=== PATIENT | female | born 2000 | race American Indian/Alaskan Native ===

== ENCOUNTER 2021-02-01 15:36 | Emergency (ER) | payer MEDICAID ==
[2021-02-01] MEDS ORDERED: Ondansetron 4 MG/2 ML SDV IVPUSH ONE (16:05)
[2021-02-01] MEDS ORDERED: Ketorolac 30 MG/ML SDV IVPUSH ONE (16:05)
[2021-02-01] MEDS ORDERED: Morphine 4 MG/ML VIAL IVPUSH ONE (16:05)
[2021-02-01] MEDS ORDERED: Sodium Chloride 0.9% 1,000 ML IV SCH (16:15)
[2021-02-01] MEDS: Sodium Chloride 0.9% 10 ML Syringe FLUSH PRN ×2 (16:30→16:38)
--- NOTE | 2021-02-01 17:05 | EDM.PDOC ---
ED HPI GENERAL MEDICAL PROBLEM - General Chief Complaint: Abdominal Pain Stated Complaint: UPPER R ABD PAIN Time Seen by Provider: 02/01/21 15:45 Source of Information: Reports: Patient History Limitations: Reports: No Limitations - History of Present Illness INITIAL COMMENTS - FREE TEXT/NARRATIVE: Patient presented to the ED because of RUQ pain which started 4 weeks ago. It's stabbing,intermittent,8-9/10 with associated N/V x1. There is no fever, chills,cough/cold. No UTI s/s but she has been constipated for 6 days now and has vaginal pain on sexual intercourse. There is no vaginal discharge, she was treated for Chlamydia 3 weeks ago. Right Upper Abdomen Pain Score (Numeric/FACES): 8 - Related Data Allergies Allergy/AdvReac Type Severity Reaction Status Date / Time No Known Allergies Allergy Verified 02/01/21 16:04 Home Meds: Home Meds Clindamycin HCl 600 mg PO QID #80 capsule 02/01/21 [Rx] Doxycycline [Vibra-Tabs] 100 mg PO BID #20 tab 02/01/21 [Rx] Ondansetron [Zofran ODT] 4 mg PO Q4H PRN #5 tab.dis 02/01/21 [Rx] Sulfamethoxazole/Trimethoprim [Bactrim Ds Tablet] 1 each PO BID #10 tablet 02/01/21 [Rx] ED ROS GENERAL - Review of Systems Review Of Systems: See Below Constitutional: Reports: No Symptoms HEENT: Reports: No Symptoms Respiratory: Reports: No Symptoms Cardiovascular: Reports: No Symptoms Endocrine: Reports: No Symptoms GI/Abdominal: Reports: Abdominal Pain, Constipation, Nausea, Vomiting : Reports: No Symptoms Musculoskeletal: Reports: No Symptoms Skin: Reports: No Symptoms Neurological: Reports: No Symptoms Psychiatric: Reports: No Symptoms ED EXAM, GI/ABD - Physical Exam Exam: See Below Exam Limited By: No Limitations General Appearance: Alert, No Apparent Distress Ears: Normal External Exam, Normal Canal, Hearing Grossly Normal, Normal TMs Nose: Normal Inspection, Normal Mucosa, No Blood Throat/Mouth: Normal Inspection, Normal Lips, Normal Teeth, Normal Gums, Normal Oropharynx, Normal Voice Head: Atraumatic, Normocephalic Neck: Normal Inspection, Supple, Non-Tender, Full Range of Motion Respiratory/Chest: No Respiratory Distress, Lungs Clear, Normal Breath Sounds, No Accessory Muscle Use Cardiovascular: Normal Peripheral Pulses, Regular Rate, Rhythm, No Edema, No Gallop, No JVD, No Murmur GI/Abdominal Exam: Normal Bowel Sounds, Soft, No Organomegaly, Other (epigastric and ruq tenderness) Back Exam: Normal Inspection, Full Range of Motion Extremities: Normal Inspection, Normal Range of Motion, Non-Tender Course - Vital Signs Text/Narrative:: Lab/CT abd-pelvis result was reviewed and discussed with patient Simethicone 80 mg PO x1 Zofran 4 mg IV x1 Toradol 30 mg IV x1 Morphine 4 mg IV x1 NS 1 L bolus Last Recorded V/S: Last Vital Signs Temp 36.4 C 02/01/21 15:36 Pulse 86 02/01/21 15:36 Resp 20 02/01/21 15:36 BP 152/76 H 02/01/21 15:36 Pulse Ox 96 02/01/21 15:36 - Orders/Labs/Meds Orders: Active Orders 24 hr Category Date Time Status Abdomen Pelvis w Cont [CT] Stat Exams 02/01/21 17:05 Taken CULTURE URINE [RM] Stat Lab 02/01/21 16:23 Ordered Sodium Chloride 0.9% [Normal Saline] 1,000 ml Med 02/01/21 16:15 Active IV ASDIRECTED Sodium Chloride 0.9% [Saline Flush] Med 02/01/21 15:52 Active 10 ml FLUSH ASDIRECTED PRN Saline Lock Insert [OM.PC] Routine Oth 02/01/21 15:52 Ordered Medication Orders Sodium Chloride (Normal Saline) 1,000 mls @ 999 mls/hr IV ASDIRECTED FRANCES Last Admin: 02/01/21 16:35 Dose: 999 mls/hr Documented by: RADHA Sodium Chloride (Sodium Chloride 0.9% 10 Ml Syringe) 10 ml FLUSH ASDIRECTED PRN PRN Reason: Keep Vein Open Last Admin: 02/01/21 16:38 Dose: 10 ml Documented by: Admin: 02/01/21 16:30 Dose: 10 ml Documented by: RADHA Labs: Laboratory Tests 02/01/21 02/01/21 02/01/21 Range/Units 16:20 16:20 16:40 WBC 7.6 (3.0-10.3) x10-3/uL RBC 4.69 (3.60-5.20) x10(6)uL Hgb 11.8 (11.4-15.5) g/dL Hct 36.6 (34.2-48.2) % MCV 77.9 (76.7-100.5) fL MCH 25.1 (23.9-33.9) pg MCHC 32.2 (31.9-34.8) g/dL RDW 15.8 (12.3-16.5) % Plt Count 415 (151-488) x10(3)uL MPV 6.3 L (7.1-12.4) fL Neut % (Auto) 70.4 (30.8-76.2) % Lymph % (Auto) 20.1 (18.4-52.1) % [place] % (Auto) 8.3 (4.4-15.7) % Eos % (Auto) 0.7 (0.6-8.1) % Baso % (Auto) 0.5 (0.2-1.5) % Neut # (Auto) 5.3 (1.5-6.3) x10-3/uL Lymph # (Auto) 1.5 (1.0-4.4) x10-3/uL Baldwin # (Auto) 0.6 (0.3-1.0) x10-3/uL Eos # (Auto) 0.1 (0.0-0.8) x10-3/uL Baso # (Auto) 0.0 (0.0-0.1) x10-3/uL Sodium (135-145) mmol/L Potassium (3.5-5.3) mmol/L Chloride (100-110) mmol/L Carbon Dioxide (21-32) mmol/L BUN (7-18) mg/dL Creatinine (0.55-1.02) mg/dL Est Cr Clr Drug Dosing mL/min Estimated GFR (MDRD) (>60) BUN/Creatinine Ratio (9-20) Glucose (80-116) mg/dL Calcium (8.2-10.1) mg/dL Total Bilirubin (0.1-1.2) mg/dL AST (5-25) IU/L ALT (12-36) U/L Alkaline Phosphatase (56-112) IU/L Total Protein (6.0-8.0) g/dL Albumin (3.2-4.5) g/dL Globulin g/dL Albumin/Globulin Ratio Amylase (25-115) U/L Lipase (73-393) U/L Urine Color Yellow (YELLOW) Urine Appearance Clear (CLEAR) Urine pH 5.0 (5.0-6.5) Ur Specific [place] 1.020 (1.010-1.025) Urine Protein Negative (NEGATIVE) mg/dL Urine Glucose (UA) Normal (NORMAL) mg/dL Urine Ketones Negative (NEGATIVE) mg/dL Urine Occult Blood Negative (NEGATIVE) Urine Nitrite Negative (NEGATIVE) Urine Bilirubin Negative (NEGATIVE) Urine Urobilinogen 1 H (NEGATIVE) mg/dL Ur Leukocyte Esterase Small H (NEGATIVE) Urine RBC 0-5 (0-5) Urine WBC 0-5 (0-5) Ur Squamous Epith Cells Occasional (NS,R,O) Urine Bacteria Rare H (NS) Urine Mucus Few H (NS) Urine HCG, Qual Negative (NEGATIVE) 02/01/21 02/01/21 Range/Units 16:40 16:40 WBC (3.0-10.3) x10-3/uL RBC (3.60-5.20) x10(6)uL Hgb (11.4-15.5) g/dL Hct (34.2-48.2) % MCV (76.7-100.5) fL MCH (23.9-33.9) pg MCHC (31.9-34.8) g/dL RDW (12.3-16.5) % Plt Count (151-488) x10(3)uL MPV (7.1-12.4) fL Neut % (Auto) (30.8-76.2) % Lymph % (Auto) (18.4-52.1) % Baldwin % (Auto) (4.4-15.7) % Eos % (Auto) (0.6-8.1) % Baso % (Auto) (0.2-1.5) % Neut # (Auto) (1.5-6.3) x10-3/uL Lymph # (Auto) (1.0-4.4) x10-3/uL [place] # (Auto) (0.3-1.0) x10-3/uL Eos # (Auto) (0.0-0.8) x10-3/uL Baso # (Auto) (0.0-0.1) x10-3/uL Sodium 139 (135-145) mmol/L Potassium 4.1 (3.5-5.3) mmol/L Chloride 104 (100-110) mmol/L Carbon Dioxide 23 (21-32) mmol/L BUN 9 (7-18) mg/dL Creatinine 0.8 (0.55-1.02) mg/dL Est Cr Clr Drug Dosing 126.42 mL/min Estimated GFR (MDRD) > 60 (>60) BUN/Creatinine Ratio 11.3 (9-20) Glucose 86 (80-116) mg/dL Calcium 8.6 (8.2-10.1) mg/dL Total Bilirubin 0.3 (0.1-1.2) mg/dL AST 23 (5-25) IU/L ALT 32 (12-36) U/L Alkaline Phosphatase 64 (56-112) IU/L Total Protein 8.3 H (6.0-8.0) g/dL Albumin 3.6 (3.2-4.5) g/dL Globulin 4.7 g/dL Albumin/Globulin Ratio 0.8 Amylase 26 (25-115) U/L Lipase 100 (73-393) U/L Urine Color (YELLOW) Urine Appearance (CLEAR) Urine pH (5.0-6.5) Ur Specific [place] (1.010-1.025) Urine Protein (NEGATIVE) mg/dL Urine Glucose (UA) (NORMAL) mg/dL Urine Ketones (NEGATIVE) mg/dL Urine Occult Blood (NEGATIVE) Urine Nitrite (NEGATIVE) Urine Bilirubin (NEGATIVE) Urine Urobilinogen (NEGATIVE) mg/dL Ur Leukocyte Esterase (NEGATIVE) Urine RBC (0-5) Urine WBC (0-5) Ur Squamous Epith Cells (NS,R,O) Urine Bacteria (NS) Urine Mucus (NS) Urine HCG, Qual (NEGATIVE) Meds: Medications Generic Name Dose Route Start Last Admin Trade Name Freq PRN Reason Stop Dose Admin Sodium Chloride 1,000 mls @ 999 mls/hr 02/01/21 16:15 02/01/21 16:35 Normal Saline IV 999 mls/hr ASDIRECTED FRANCES Administration Sodium Chloride 10 ml 02/01/21 15:52 02/01/21 16:38 Sodium Chloride 0.9% 10 Ml Syringe FLUSH 10 ml ASDIRECTED PRN Administration Keep Vein Open Discontinued Medications Generic Name Dose Route Start Last Admin Trade Name Baldevq PRN Reason Stop Dose Admin Al Hydroxide/Mg Hydroxide 15 0 ml 02/01/21 17:39 ml/ Lidocaine HCl 15 ml PO 02/01/21 17:40 ONETIME ONE Iopamidol 117 ml 02/01/21 18:00 02/01/21 18:12 Iopamidol 755 Mg/Ml 150 Ml Bottle IV 02/01/21 18:01 117 ml ONETIME ONE Administration Ketorolac Tromethamine 30 mg 02/01/21 16:05 02/01/21 16:46 Ketorolac 30 Mg/Ml Sdv IVPUSH 02/01/21 16:06 30 mg ONETIME ONE Administration Morphine Sulfate 4 mg 02/01/21 16:05 02/01/21 16:48 Morphine 4 Mg/Ml Vial IVPUSH 02/01/21 16:06 4 mg ONETIME ONE Administration Ondansetron HCl 4 mg 02/01/21 16:05 02/01/21 16:46 Ondansetron 4 Mg/2 Ml Sdv IVPUSH 02/01/21 16:06 4 mg ONETIME ONE Administration Simethicone 80 mg 02/01/21 17:43 02/01/21 17:48 Simethicone 80 Mg Tab.Chew PO 02/01/21 17:44 80 mg NOW STA Administration Departure - Departure Time of Disposition: 18:30 Disposition: Home, Self-Care 01 Condition: Good Clinical Impression: UTI (urinary tract infection), Endometritis - Discharge Information Prescriptions: Sulfamethoxazole/Trimethoprim [Bactrim Ds Tablet] 1 each PO BID #10 tablet Clindamycin HCl 600 mg PO QID #80 capsule Doxycycline [Vibra-Tabs] 100 mg PO BID #20 tab Ondansetron [Zofran ODT] 4 mg PO Q4H PRN #5 tab.dis PRN Reason: Constipation Instructions: Urinary Tract Infection, Adult, [id number], Endometritis Referrals: PCP,Not In Area [Primary Care Provider] - Forms: ED Department Discharge Additional Instructions: Please read discharge instructions on abdominal pain and constipation Increase oral fluid intake Bactrim DS twice daily for 5 days(for bladder infection) Clindamycin 600 mg 4 times daily for 10 days(uterine infection) Doxycycline 100 mg Twice daily for 10 days Follow with your doctor next week Sepsis Event Note (ED) - Evaluation Sepsis Screening Result: No Definite Risk - Focused Exam Vital Signs: Vital Signs Temp Pulse Resp BP Pulse Ox 02/01/21 15:36 36.4 C 86 20 152/76 H 96 - My Orders Last 24 Hours: My Active Orders 02/01/21 15:52 Sodium Chloride 0.9% [Saline Flush] 10 ml FLUSH ASDIRECTED PRN Saline Lock Insert [OM.PC] Routine 02/01/21 16:15 Sodium Chloride 0.9% [Normal Saline] 1,000 ml IV ASDIRECTED 02/01/21 16:23 CULTURE URINE [RM] Stat 02/01/21 17:05 Abdomen Pelvis w Cont [CT] Stat - Assessment/Plan Last 24 Hours: My Active Orders 02/01/21 15:52 Sodium Chloride 0.9% [Saline Flush] 10 ml FLUSH ASDIRECTED PRN Saline Lock Insert [OM.PC] Routine 02/01/21 16:15 Sodium Chloride 0.9% [Normal Saline] 1,000 ml IV ASDIRECTED 02/01/21 16:23 CULTURE URINE [RM] Stat 02/01/21 17:05 Abdomen Pelvis w Cont [CT] Stat
[2021-02-01] MEDS ORDERED: Alum Hydroxide/Mag Hydroxide 15 ML, Lidocaine 2% 15 ML PO ONE ×2 (17:39)
[2021-02-01] MEDS ORDERED: Simethicone 80 MG Tab.Chew PO STA (17:43)
[2021-02-01] MEDS ORDERED: Iopamidol 755 MG/ML 150 ML Bottle IV ONE (18:00)
[2021-02-01] MEDS ORDERED: Clindamycin HCl 150 MG Cap PO STA (19:04)
[2021-02-01] MEDS ORDERED: Doxycycline 100 MG Tab PO STA (19:04)
[2021-02-01] MEDS ORDERED: Sulfamethoxazole/Trimethoprim 800-160 MG Tab PO STA (19:04)
== END 2021-02-01 19:33 | disposition home or self-care (01) ==
LOC: FB.ED 15:36 → SUPCPDRO 15:36 → FB.ED 19:33
DX: N39.0 Urinary tract infection, site not specified (principal); N71.9 Inflammatory disease of uterus, unspecified
CPT/HCPCS: 36415; 74177; 80053; 81001; 81025; 82150; 83690; 85025; 87086; 96374; 96375; 99284-25; A9270-GY; J1885; J2270; J2405; J7030; Q9967